=== PATIENT | male | born 2005 | race African-American/Black ===

== ENCOUNTER 2025-06-08 16:28 | Outpatient (REF) | payer OTHER, SELFPAY ==
--- NOTE | ~2025-06-08 | XR_ITS ---
EXAMINATION: XR KNEE, LEFT CLINICAL INFORMATION: M25.562 - Pain in left knee COMPARISON: None available. TECHNIQUE: Three views of the left knee. FINDINGS: There is a joint effusion. Joint spaces are preserved. There are no osteophytes. There are no erosions. There is no fracture. XR/XR knee LT 3V IMPRESSION: Joint effusion Electronically signed by: Demarco Vallecillo MD 06/08/2025 05:15 PM EST
== END 2025-06-08 16:29 | disposition home or self-care (01) ==
LOC: HO.HMGCX 16:28
PROVIDERS: Visit Provider Physician Assistant Medical
DX: S83.92XA Sprain of unspecified site of left knee, initial encounter (principal); X50.0XXA Overexertion from strenuous movement or load, initial encounter; Y93.B3 Activity, free weights; Y92.39 Other specified sports and athletic area as the place of occurrence of the external cause
CPT/HCPCS: 73562

== ENCOUNTER 2025-06-08 16:28 | Outpatient (AMB) | payer OTHER, SELFPAY ==
[2025-06-08 16:50] VITALS: BP 114/60; PULSE 83; TEMP 36.8; O2SAT 97; BMI 27.1
--- NOTE | 2025-06-08 16:50 | MHC.OFFWIV ---
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 - He reports that approximately one and a half weeks ago, he was performing squats at the gym when he heard a pop in his knee. - He has been able to walk since the injury but experiences a sharp pain on top of the knee, which he describes as feeling like needles. - He has not experienced any swelling. - The pain is located on the front of the knee and sometimes behind it, with no radiation down the calf or ankle and no associated numbness or tingling. - He reports that applying ice and taking ibuprofen provide temporary relief, but the pain returns after the medication wears off. - He has no prior history of injury to his leg. Physical Exam General: Cooperative, healthy appearing, comfortable, no acute distress and well developed Respiratory: Normal respiratory effort and able to speak in complete sentences. Clear to auscultation bilaterally Cardiovascular: Regular rate and rhythm. Normal S1 and S2 Skin: No rashes or lesions noted. Musculoskeletal: No swelling or deformity noted of the knee. FROM of the left knee. No click noted. No TTP of the patella, medial or lateral condyle, or posterior fossa. Tenderness noted on the medial meniscus of the left knee. Negative anterior drawer test. Negative Manuel noted. DTR are 1+ on the LE. Negative Homans noted. FROM of the ankle. Ambulates with a steady gait. Strength is 5/5 on the LE bilaterally. Neuro: Sensation is intact on the LE bilaterally. Review of Systems Const All systems reviewed & are unremarkable except as noted in HPI and below Physical Exam Vital Signs: BMI result Body Mass Index 27.1 Results Reviewed Results Reviewed: willl review the xray in the office Assessment & Plan Assessment & Plan (1) Left knee pain: Code(s): M25.562 - Pain in left knee Qualifiers: Chronicity: acute Qualified Code(s): M25.562 - Pain in left knee (2) Knee sprain: Code(s): S83.90XA - Sprain of unspecified site of unspecified knee, initial encounter Qualifiers: Encounter type: initial encounter Involved ligament of knee: unspecified ligament Laterality: left Qualified Code(s): S83.92XA - Sprain of unspecified site of left knee, initial encounter Plan Most likely strain vs ligamentous strain Plan - will order the x-ray in the office today - An MRI of the knee is recommended for definitive diagnosis. - For symptomatic management, the patient is advised to use rest, ice, Tylenol, and Motrin. - The patient should avoid repetitive motions that aggravate the knee. - A knee brace will be provided to the patient. - follow up with PCP for a referral to ortho Orders: Orders XR knee LT 3V Today M25.562 - Pain in left knee Coding Level of Care Code New Pt Level 4 (99110) Diagnoses Acute pain of left knee M25.562 Chronicity: acute Sprain of left knee, unspecified ligament, initial encounter S83.92XA Encounter type: initial encounter Involved ligament of knee: unspecified ligament Laterality: left
--- OUTSIDE RECORDS SUMMARY | 2025-06-08 22:39 | XMS_ITS | Clinical Summary ---
Author Organization [facility] [place] [address] Care Team Providers Care Actuary Clerk Name Role Phone Cristy Nash MD Primary Care Provider [phone] Allergies No known active allergies Medications No known medications Active Problems Problem Noted Date Diagnosed Date Chronic benign neutropenia 04/29/2024 Leukopenia 04/12/2024 Surgical History Surgery Date Site/Laterality Comments OTHER SURGICAL HISTORY PROCEDURE: HISTORICAL UNSPECIFIED SURGERY; COMMENT: repair of perforated ulcer Family History Medical History Relation Name Comments No Known Problems Brother No Known Problems Father No Known Problems Mother No Known Problems Sister Relation Name Status Comments Brother Father Mother Sister Social History Tobacco Use Types Packs/Day Years Used Date Smoking Tobacco: Never Smokeless Tobacco: Never Tobacco Cessation:Counseling Given: Not Answered Alcohol Use Standard Drinks/Week Comments Not Currently 0 (1 standard drink = 0.6 oz pur e alcohol) Sex and Gender Information Value Date Recorded Sex Assigned at Not on file Legal Sex Male 1:25 AM EST Gender Identity Not on file Sexual Orientation Not on file Last Filed Vital Signs Vital Sign Reading Time Taken Comments Blood Pressure 125/68 05/20/2024 11:59 AM EST Pulse 64 05/20/2024 11:59 AM EST Temperature 36.8 C (98.2 F) 05/20/2024 11:59 AM EST Respiratory Rate - - Oxygen Saturation 100% 05/20/2024 11:59 AM EST Inhaled Oxygen Concentration - - Weight 90.3 kg (199 lb) 05/20/2024 11:59 AM EST Height 182.9 cm (6') 04/29/2024 1:38 PM EST Body Mass Index 26.99 04/29/2024 1:38 PM EST Plan of Treatment Upcoming Encounters Date Type Department Care Team (Late st Contact Info) Description 08/19/2025 11:30 AM EST Office Visit Adult Medicine [facility] [address], [place] [phone] Cristy Nash MD [address] [place], [place] Health Maintenance Due Date Last Done Comments COVID-19 Vaccine (#1) 12/02/2008 Meningococcal B Vaccine (1 o f 2 - Standard) 2019 HIV Screening 06/03/2022 Hepatitis C Screening 06/03/2022 Social Influencers of Health Screening 06/03/2022 Pneumococcal Vaccine: Pediatrics (0 to 5 Years) and At-Risk Patients (6 to 49 Years) (1 of 2 - PCV) 12/02/2022 Depression Screening 06/25/2024 Influenza Vaccine (#1) 2025 , 04/23/2020 Annual Well Child Visit (3-2 1 years old) 03/24/2025 03/24/2024, 11/23/2021, 10/05/2020 Cholesterol Screening (Lipid Panel) 03/24/2029 03/24/2024 DTaP,Tdap,and Td Vaccines (3 - Td or Tdap) 10/05/2030 10/05/2020, 04/23/2020 RSV Immunization Adult Patients (1 - 1-dose 75+ series) 12/02/2078 MMR Vaccines Completed 10/05/2020, 04/23/2020 Meningococcal ACWY Vaccine Completed 10/05/2020 HPV Vaccines Completed 06/09/2021, 12/09/2020, 10/05/2020 Hepatitis B Vaccines Completed 06/09/2021, 01/06/2021, 04/23/2020 IPV Vaccines Completed 06/09/2021, 12/09/2020, 04/23/2020 HIB Vaccines Aged Out No longer eligi ble based on patient's age to complete this topic Hepatitis A Vaccines Aged Out No long er eligible based on patient's age to complete this topic RSV Immunization Patients Under 20 months Aged Out No longer eligible b ased on patient's age to complete this topic Varicella Vaccines Aged Out No longer eligible based on patient's age to complete this [place] [id number] [employer] [facility] Care Teams Actuary Clerk Relationship Specialty Start Date End Date Cristy Nash MD [address] [place], [place] [address] [id number] PCP - General 04/07/24
== END 2025-06-08 17:00 ==
PROVIDERS: Visit Provider Physician Assistant Medical
DX: M25.562 Pain in left knee (principal); S83.92XA Sprain of unspecified site of left knee, initial encounter

== ENCOUNTER → 2025-06-08 16:57 | Outpatient (BNV) | payer OTHER, SELFPAY | PROVIDERS: Visit Provider Radiology Diagnostic Radiology | DX: M25.462 Effusion, left knee (principal) | CPT/HCPCS: 73562 ==